=== PATIENT | female | born 1960 | race Caucasian/White ===

== ENCOUNTER 2017-11-28 13:39 | Emergency (ER) | payer BC ==
--- NOTE | 2017-11-28 14:30 | EDPHYS ---
Physician Documentation [facility] Name: Tootie Figueroa Age: 57 yrs Sex: Female : 1960 Arrival Date: 11/28/2017 Time: 13:41 Bed 12 Private MD: Bladimir Dennis ED Physician Jonathan Guerra HPI: 11/28 14:22 This 57 yrs old Female presents to ER via Ambulatory with complaints of jr8 Foreign Body - Splinter. 14:22 The patient or guardian reports the patient has a suspected foreign body, of the right jr8 index finger. The reported likely foreign body is lisa thorn . Onset: The symptoms/episode began/occurred acutely, 2 day(s) ago. Current symptoms: none. The patient has not experienced similar symptoms in the past. The patient has not recently seen a physician. Stated that she thinks there is still part of a thorn in right index finger. Historical: - Allergies: 14:05 No Known Allergies; rk2 - Immunization history:: Adult Immunizations up to date. - Ebola Screening: : Patient negative for fever greater than or equal to 101.5 degrees Fahrenheit, and additional compatible Ebola Virus Disease symptoms. - Social history:: Smoking status: Patient/guardian denies using tobacco. ROS: 14:22 Eyes: Negative for injury, pain, redness, and discharge, ENT: Negative for injury, jr8 pain, and discharge, Neck: Negative for injury, pain, and swelling, Cardiovascular: Negative for chest pain, palpitations, and edema, Respiratory: Negative for shortness of breath, cough, wheezing, and pleuritic chest pain, Abdomen/GI: Negative for abdominal pain, nausea, vomiting, diarrhea, and constipation, Back: Negative for injury and pain, MS/Extremity: Negative for injury and deformity, Neuro: Negative for headache, weakness, numbness, tingling, and seizure. Exam: 14:22 Cardiovascular: Regular rate and rhythm with a normal S1 and S2. No gallops, murmurs, jr8 or rubs. Normal PMI, no JVD. No pulse deficits. Respiratory: Lungs have equal breath sounds bilaterally, clear to auscultation and percussion. No rales, rhonchi or wheezes noted. No increased work of breathing, no retractions or nasal flaring. MS/ Extremity: Pulses equal, no cyanosis. Neurovascular intact. Full, normal range of motion. Neuro: Awake and alert, GCS 15, oriented to person, place, time, and situation. Cranial nerves II-XII grossly intact. Motor strength 5/5 in all extremities. Sensory grossly intact. Cerebellar exam normal. Normal gait. 14:22 Skin: small pustule noted to pad of right index finger. No identifiable FB noted upon examination . Vital Signs: 14:05 BP 141 / 91; Pulse 64; Resp 17; Pulse Ox 100% on R/A; rk2 Procedures: 14:22 Foreign Body Removal: lisa thorn, from the right index finger, by needle, tweezers, jr8 Dressinx4s were used to dress the wound, The patient tolerated the removal well, exudate removed from finger. No identifiable FB seen . MDM: 13:56 Patient medically screened. jr8 14:22 Data reviewed: vital signs, nurses notes, and as a result, I will discharge patient. jr8 Data interpreted: Pulse oximetry: on room air is 100 %. Interpretation: normal. Counseling: I had a detailed discussion with the patient and/or guardian regarding: the historical points, exam findings, and any diagnostic results supporting the discharge/admit diagnosis, the need for outpatient follow up, a family practitioner, to return to the emergency department if symptoms worsen or persist or if there are any questions or concerns that arise at home. ED course: Discussed with patient to keep clean and let it drain. Will put on antibiotics. If worse to come back . Administered Medications: No medications were administered Disposition: 11/29 08:00 Co-signature as Attending Physician, Jonathan Guerra MD. Disposition: 18 14:29 Discharged to Home. Impression: Suspected FB right index finger . - Condition is Stable. - Discharge Instructions: Foreign Body. - Prescriptions for Keflex 500 mg Oral Capsule - take 1 capsule by ORAL route every 6 hours for 7 days; 28 capsule. - Medication Reconciliation Form, Thank You Letter, Antibiotic Education, Prescription Opioid Use form. - Follow up: Bladimir Dennis MD; When: 5 - 6 days; Reason: Recheck today's complaints, Continuance of care, Re-evaluation by your physician. - Problem is new. - Symptoms have improved. Signatures: Fidelina Cespedes RN RN Joel Chambers PA PA jr8 Jonathan Guerra MD MD gs Kidder, Rhonda RN RN rk2 Corrections: (The following items were deleted from the chart) 11/28 14:25 14:22 Foreign Body Removal: lisa thorn, from the right index finger, by needle, jr8 tweezers, Dressinx4s were used to dress the wound, The patient tolerated the removal well, jr8 14:39 14:29 11/28/2017 14:29 Discharged to Home. Impression: Suspected FB right index finger ss . Condition is Stable. Forms are Medication Reconciliation Form, Thank You Letter, Antibiotic Education, Prescription Opioid Use. Follow up: Bladimir Dennis; When: 5 - 6 days; Reason: Recheck today's complaints, Continuance of care, Re-evaluation by your physician. Problem is new. Symptoms have improved. jr8
--- NOTE | 2017-11-28 14:30 | ER ---
Nurse's Notes [facility] Name: Tootie Figueroa Age: 57 yrs Sex: Female : 1960 Arrival Date: 11/28/2017 Time: 13:41 Bed 12 Private MD: Bladimir Dennis Diagnosis: Suspected FB right index finger Presentation: 11/28 14:02 Presenting complaint: Patient states: Splinter in 2nd finger right hand x 1 1/2 weeks. rk2 Transition of care: patient was not received from another setting of care. Onset of symptoms was November 2017. Risk Assessment: Do you want to hurt yourself or someone else? Patient reports no desire to harm self or others. Initial Sepsis Screen: Does the patient meet any 2 criteria? No. Patient's initial sepsis screen is negative. Does the patient have a suspected source of infection? No. Patient's initial sepsis screen is negative. Care prior to arrival: None. 14:02 Method Of Arrival: Ambulatory rk2 14:02 Acuity: JEFFERY 4 rk2 Triage Assessment: 14:29 General: Appears in no apparent distress. General: Appears well groomed, well rk2 developed, well nourished, Behavior is calm, cooperative. Pain: Complains of pain in right hand. Neuro: No deficits noted. Level of Consciousness is alert, obeys commands, Oriented to person, place, time, situation. Respiratory: Airway is patent Respiratory effort is even, unlabored, Respiratory pattern is regular, symmetrical. Derm: Skin is pink, warm \T\ dry. Historical: - Allergies: 14:05 No Known Allergies; rk2 - Immunization history:: Adult Immunizations up to date. - Ebola Screening: : Patient negative for fever greater than or equal to 101.5 degrees Fahrenheit, and additional compatible Ebola Virus Disease symptoms. - Social history:: Smoking status: Patient/guardian denies using tobacco. Screenin:29 Abuse screen: Denies threats or abuse. Nutritional screening: On. Tuberculosis rk2 screening: No symptoms or risk factors identified. Fall Risk None identified. Assessment: 14:36 General: Appears in no apparent distress. comfortable, Behavior is calm, cooperative. ss Pain: Complains of pain in palmar aspect of distal phalanx of right index finger Pain currently is 3 out of 10 on a pain scale. Quality of pain is described as Is continuous. Neuro: Level of Consciousness is awake, alert, obeys commands, Oriented to person, place, time, situation. Respiratory: Airway is patent Respiratory effort is even, unlabored. EENT: Oral mucosa is moist. Throat is clear. Derm: Skin is intact, is healthy with good turgor, Skin is pink, warm \T\ dry. normal. Musculoskeletal: mild swelling noted to finger. Vital Signs: 14:05 BP 141 / 91; Pulse 64; Resp 17; Pulse Ox 100% on R/A; rk2 ED Course: 13:41 Patient arrived in ED. as 13:43 Bladimir Dennis MD is Private Physician. as 13:56 [facility] jr8 13:56 Jonathan Guerra MD is Attending Physician. jr8 14:02 Suzie uW, RN is Primary Nurse. rk2 14:05 Triage completed. rk2 14:26 Bladimir Dennis MD is Referral Physician. jr8 14:29 Patient has correct armband on for positive identification. Bed in low position. Call rk2 light in reach. 14:30 Arm band placed on. rk2 14:38 No provider procedures requiring assistance completed. Patient did not have IV access ss during this emergency room visit. Administered Medications: No medications were administered Outcome: 14:29 Discharge ordered by . [facility] 14:38 Discharged to home ambulatory. ss 14:38 Condition: good 14:38 Discharge instructions given to patient, Instructed on discharge instructions, follow up and referral plans. medication usage, Demonstrated understanding of instructions, follow-up care, medications, Prescriptions given X 1. 14:39 Patient left the ED. ss Signatures: Amrita Goldberg Shelby, RN RN Joel Chambers PA PA jr8 Suzie Wu, SUDHIR RN rk2
== END 2017-11-28 14:39 | disposition home or self-care (01) ==
LOC: ER 13:39
DX: S60.450A Superficial foreign body of right index finger, initial encounter (principal)
CPT/HCPCS: 99281